=== PATIENT | female | born 1950 | race Caucasian/White ===

== ENCOUNTER 2025-02-16 11:04 | Outpatient (CLI) | payer MEDICARE, BC ==
[2025-02-16] MEDS ORDERED: SILVER SULFADIAZINE CREAM 25 GM TUBE ONE (11:25)
== END 2025-02-16 23:59 | disposition home health service (06) ==
LOC: WOU 11:04
PROVIDERS: ATTEND Specialist
DX: T24.212D Burn of second degree of left thigh, subsequent encounter (principal); T31.0 Burns involving less than 10% of body surface; X10.0XXD Contact with hot drinks, subsequent encounter; I10 Essential (primary) hypertension
CPT/HCPCS: G0463; A6253 ×2